=== PATIENT | female | born 1965 ===

== ENCOUNTER 2023-08-18 18:47 | Inpatient (IN) ==
[2023-08-18 20:03] LABS: Urine Appearance Clear; Urine Bilirubin Negative (Negative); Urine Blood Negative (Negative); Urine Color Yellow; Urine Glucose Negative (Negative); Urine Ketones 1+ (Negative); Urine Nitrite Negative (Negative); Urine Protein Trace (Negative); Urine Specific Gravity 1.027 (1.002-1.030); Urine Urobilinogen Negative (Negative); Urine pH 5.5 (5.0-8.0)
[2023-08-18 20:04] LABS: ABS Eosinophils 0.2 10^3/uL (0.0-0.5); ABS Lymphocytes 1.3 10^3/uL (1.0-4.8); ABS Monocytes 0.9 10^3/uL (0.0-0.9); ABS Neutrophils 12.8 10^3/uL (1.5-7.6); ABS Nucleated RBC 0.01 10^3/ul; Eosinophil % 1.4 %; Hematocrit 43.6 % (35-45); Hemoglobin 14.9 g/dL (11.5-14.3); Lymphocyte % 8.3 %; Mean Corpuscular Hemoglobin 30.3 pg (27-33); Mean Corpuscular Hgb Conc 34.2 g/dL (31-36); Mean Corpuscular Volume 88.7 fL (80-97); Mean Platelet Volume 8.4 fL (7.5-11.2); Platelet Count 291 10^3/uL (150-450); Red Blood Count 4.92 10^6/uL (3.63-4.92); Red Cell Distribution Width 13.9 % (12-17); White Blood Count 15.2 10^3/uL (3.8-11.8)
[2023-08-18 20:14] LABS: Urine Bacteria 1+ /HPF (Absent); Urine Red Blood Cell Trace(0-2/hpf) /HPF (0-Trace); Urine Squamous Epithelial Cell Present /HPF (Absent); Urine White Blood Cell Trace(0-5/hpf) /HPF (0-Trace)
[2023-08-18] MEDS: Morphine 4 MG/ML VIAL (1 ml) IV ONE (20:34)
[2023-08-18] MEDS: Lactated Ringers 1000 ml BAG 1,000 ML IV ONE (20:34)
[2023-08-18] MEDS: Ondansetron 4 mg VIAL 2 MG/ML 2 ml VIAL IV ONE (20:35)
[2023-08-18 20:40] LABS: Albumin 4.6 g/dL (3.2-5.2); Albumin/Globulin Ratio 1.6 (1-3); C Reactive Protein 9.6 mg/L (<8.01); Calcium 10.1 mg/dL (8.6-10.3); Creatinine, Serum 1.01 mg/dL (0.51-0.95); Globulin 2.8 g/dL (2-4); Potassium 3.9 mmol/L (3.5-5.0); Total Bilirubin 0.8 mg/dL (0.2-1.0); Total Protein 7.4 g/dL (6.4-8.9); eGFR CKD-EPI 64.5 (>60)
[2023-08-18] MEDS: Iohexol 300 (CONTRAST) 10 ML SDV IV ONE (22:03)
[2023-08-18] MEDS ORDERED: oxyCODONE/Acetamin 5/325 mg TAB PO PRN (23:37)
[2023-08-18] MEDS ORDERED: HYDROmorphone 1 MG/1 ML SYRINGE IV SLOW PU PRN (23:37)
[2023-08-18] MEDS ORDERED: Metoclopramide 5 MG/ML VIAL (10 mg) IV PRN (23:40)
[2023-08-19] MEDS: Lactated Ringers 1000 ml BAG 1,000 ML IV SCH (00:53)
[2023-08-19 06:44] LABS: ABS Eosinophils 0.2 10^3/uL (0.0-0.5); ABS Lymphocytes 1.2 10^3/uL (1.0-4.8); ABS Monocytes 0.7 10^3/uL (0.0-0.9); ABS Neutrophils 6.9 10^3/uL (1.5-7.6); ABS Nucleated RBC 0.01 10^3/ul; Eosinophil % 2.4 %; Hematocrit 37.9 % (35-45); Hemoglobin 12.9 g/dL (11.5-14.3); Lymphocyte % 13.1 %; Mean Corpuscular Hemoglobin 30.5 pg (27-33); Mean Corpuscular Hgb Conc 34.1 g/dL (31-36); Mean Corpuscular Volume 89.2 fL (80-97); Mean Platelet Volume 8.4 fL (7.5-11.2); Nucleated Red Blood Cells % 0.1 %/100WBC (0.0-0.8); Platelet Count 227 10^3/uL (150-450); Red Blood Count 4.24 10^6/uL (3.63-4.92); Red Cell Distribution Width 13.5 % (12-17)
[2023-08-19 07:27] LABS: Calcium 8.7 mg/dL (8.6-10.3); Creatinine, Serum 0.75 mg/dL (0.51-0.95); Potassium 4.3 mmol/L (3.5-5.0); eGFR CKD-EPI 92.2 (>60)
[2023-08-19] MEDS: Diatrizoate Meg/Sod(CONTRAST) 30 ML ORAL.SOLN PO ONE (09:04)
[2023-08-19] MEDS: Ondansetron 4 mg VIAL 2 MG/ML 2 ml VIAL IV PRN (14:24)
[2023-08-20 14:11] VITALS: BP 104/71
== END 2023-08-20 15:55 | disposition home or self-care (01) | DRG 247 ==
LOC: EDHOLD 18:47 → ED 18:47 → EDHOLD 08-19 04:11 → SSU 08-19 13:23
PROVIDERS: ADMIT Surgery; ATTEND Surgery